=== PATIENT | male | born 1970 | race Caucasian/White ===

== ENCOUNTER 2020-09-16 06:11 | Day surgery (SDC) | payer OTHER ==
[~2020-09-16] VITALS: Ht 193 cm; Wt 136.9 kg
[~2020-09-16 06:11] MED LIST: ADULT ASPIRIN R81 MG PO; FISH OIL 1,2001 EACH PO; FLONASE ALLERG9.9 ML NS; LISI20 PO; METO50ER PO; VITAMIN D22000 UNIT PO
--- NOTE | 2020-09-16 06:30 | NUR ---
09/16/20 0630 Cat Vega CHARTED BY KIMBER QUINTANILLA RN
== END 2020-09-16 09:27 | disposition home or self-care (01) ==
LOC: ORSCSDS 06:11
PROVIDERS: Orthopaedic Surgery
PROC: 0SBC4ZZ Excision of Right Knee Joint, Percutaneous Endoscopic Approach (ICD-10-PCS; principal; 2020-09-16 07:30)
DX: S83.241A Other tear of medial meniscus, current injury, right knee, initial encounter (principal); I10 Essential (primary) hypertension; G47.33 Obstructive sleep apnea (adult) (pediatric); E78.00 Pure hypercholesterolemia, unspecified; E66.01 Morbid (severe) obesity due to excess calories; Z68.36 Body mass index [BMI] 36.0-36.9, adult
CPT/HCPCS: J0171; J0690; J1100; J1885; J2250; J2405; J2704; J3010; J7120

== ENCOUNTER 2023-10-22 08:52 | Day surgery (SDC) | payer OTHER ==
[~2023-10-22] VITALS: Ht 195.6 cm; Wt 132.2 kg
[2023-10-22] MEDS ORDERED: FLAX (09:37)
[2023-10-22] MEDS ORDERED: TURMERIC500 M2 (09:38)
[2023-10-22] MEDS ORDERED: Milk Thistle175 M1 (09:38)
[2023-10-22 10:49] VITALS: BP 120/80
== END 2023-10-22 10:55 | disposition home or self-care (01) ==
LOC: ORSCSDS 08:52
PROVIDERS: Surgery
PROC: 0DBL8ZX Excision of Transverse Colon, Via Natural or Artificial Opening Endoscopic, Diagnostic (ICD-10-PCS; principal; 2023-10-22 11:00)
PROC: 0DBN8ZX Excision of Sigmoid Colon, Via Natural or Artificial Opening Endoscopic, Diagnostic (ICD-10-PCS; principal; 2023-10-22 11:00)
DX: Z12.11 Encounter for screening for malignant neoplasm of colon (principal); D12.3 Benign neoplasm of transverse colon; K63.5 Polyp of colon; Z86.010 Personal history of colon polyps; E78.5 Hyperlipidemia, unspecified; I10 Essential (primary) hypertension; R73.03 Prediabetes; E66.9 Obesity, unspecified; Z68.36 Body mass index [BMI] 36.0-36.9, adult; Z79.82 Long term (current) use of aspirin; Z79.899 Other long term (current) drug therapy
CPT/HCPCS: 88305; J0461; J2001; J2405; J2704; J7120; Q9968